=== PATIENT | male | born 1930 | race Caucasian/White ===

== ENCOUNTER → 2016-08-08 | Outpatient (CLI) | payer MEDICARE, OTHER | LOC: MW.CHPS 08:00 | PROVIDERS: ATTEND Physician Assistant | DX: C44.310 Basal cell carcinoma of skin of unspecified parts of face (principal) | CPT/HCPCS: 99203 ==

== ENCOUNTER 2016-08-21 09:41 | Day surgery (SDC) | payer MEDICARE, OTHER ==
[~2016-08-21 09:41] MED LIST: Bupivacaine 0.25%/EPINEPHrine 1:200,000 10 ML SDV INJECT ONE; Bupivacaine 0.25%/EPINEPHrine 1:200,000 10 ML SDV ONE; Lactated Ringers 1,000 ML IV SCH; Lidocaine 2% 5 ML SDV ONE; Propofol 200 MG/20 ML SDV ONE; Sodium Chloride 0.9% 20 ML ONE; traMADol 50 MG Tab PO PRN
[2016-08-21] MEDS ORDERED: ceFAZolin 2 GM in Premix Bag 1 BAG IV ONE (10:00)
--- NOTE | 2016-08-21 10:23 | PCM.PREANE ---
Preanesthetic Assessment - Anesthesia/Transfusion/Family Hx Anesthesia History: Prior Anesthesia Without Reaction Other Type of Anesthesia Reaction Comment: Dneis any known problem with anesthesia in the past Family History of Anesthesia Reaction: No Transfusion History: No Prior Transfusion(s) Intubation History: Unknown - Review of Systems General: No Symptoms Pulmonary: No Symptoms Cardiovascular: No Symptoms Gastrointestinal: No symptoms Neurological: No Symptoms Other: Reports: None - Physical Assessment Height: 1.68 m Weight: 80.286 kg ASA Class: 3 Mental Status: Alert & Oriented x3 Airway Class: Mallampati = 2 Dentition: Reports: Dentures (upper and lower) Thyro-Mental Finger Breadths: 2 Mouth Opening Finger Breadths: 2 ROM/Head Extension: Limited/Partial Lungs: Clear to auscultation, Normal respiratory effort Cardiovascular: Regular Rate, Regular Rhythm - Allergies Allergies/Adverse Reactions: Allergies Allergy/AdvReac Type Severity Reaction Status Date / Time No Known Allergies Allergy Verified 09/15/15 11:30 - Blood Blood Available: No - Anesthesia Plan Pre-Op Medication Ordered: None - Acknowledgements Anesthesia Type Planned: MAC Pt an Appropriate Candidate for the Planned Anesthesia: Yes Alternatives and Risks of Anesthesia Discussed w Pt/Guardian: Yes Pt/Guardian Understands and Agrees with Anesthesia Plan: Yes PreAnesthesia Questionnaire HEENT History: Reports: Other (see below) Other HEENT History: top and bottom denture Cardiovascular History: Reports: CAD, Hypertension, DC, Stents (multiple) Respiratory History: Reports: COPD Gastrointestinal History: Reports: GERD Musculoskeletal History: Reports: Fracture Other Musculoskeletal History: hx fx ankle Hematologic History: Reports: Other (see below) Other Hematologic History: unknown, states "they may have given me a transfusion with my heart bypass" - Past Surgical History Head Surgeries/Procedures: Reports: None Cardiovascular Surgical History: Reports: Coronary artery bypass, Coronary artery stent Other Cardiovascular Surgeries/Procedures: CABG x3 ,coronary stents x2 or 3 in 2003, coronary stent x7 in 2016 GI Surgical History: Reports: Colonoscopy Musculoskeletal Surgical History: Reports: ORIF (ankle fx) - SUBSTANCE USE Smoking Status *Q: Former Smoker Tobacco Use Within Last Twelve Months: No Second Hand Smoke Exposure: No Days Per Week of Alcohol Use: 0 Number of Drinks Per Day: 0 Total Drinks Per Week: 0 Recreational Drug Use History: No - HOME MEDS Home Medications: Home Meds Aspirin [Lite Coat Aspirin] 81 mg PO DAILY 09/23/13 [History] Lisinopril [Zestril] 20 mg PO DAILY 09/23/13 [History] Omeprazole 40 mg PO DAILY 09/23/13 [History] Clopidogrel Bisulfate [Plavix] 75 mg PO DAILY 08/16/16 [History] Furosemide 20 mg PO DAILY 08/16/16 [History] atorvaSTATin Calcium [Atorvastatin Calcium] 40 mg PO DAILY 08/16/16 [History] - CURRENT (IN HOUSE) MEDS Current Meds: Current Medications Lactated Ringer's (Ringers, Lactated) 1,000 mls @ 125 mls/hr IV ASDIRECTED WILLARD Cefazolin Sodium/Dextrose 2 gm (/ Premix) 50 mls @ 100 mls/hr IV ONETIME ONE Stop: 08/21/16 10:29 Tramadol HCl (Ultram) 50 mg PO Q4H PRN PRN Reason: Pain Discontinued Medications Bupivacaine HCl/Epinephrine Bitart (Marcaine 0.25%/Epinephrine 1:200,000) 10 ml INJECT ONETIME ONE Stop: 08/21/16 09:01 Bupivacaine HCl/Epinephrine Bitart (Marcaine 0.25%/Epinephrine 1:200,000) Confirm Administered Dose 20 ml .ROUTE .STK-MED ONE Stop: 08/21/16 07:46 Sodium Chloride (Normal Saline) Confirm Administered Dose 20 mls @ as directed .ROUTE .STK-MED ONE Stop: 08/21/16 07:19 Lidocaine (Xylocaine-Mpf 2%) Confirm Administered Dose 5 ml .ROUTE .STK-MED ONE Stop: 08/21/16 07:28 Propofol (Diprivan 20 Ml) Confirm Administered Dose 200 mg .ROUTE .STK-MED ONE Stop: 08/21/16 07:28 Sufentanil Citrate (Sufenta) Confirm Administered Dose 50 mcg .ROUTE .STK-MED ONE Stop: 08/21/16 07:17
[2016-08-21] MEDS ORDERED: ceFAZolin 1 GM Vial ONE (11:51)
[2016-08-21] MEDS ORDERED: Ondansetron 4 MG/2 ML SDV ONE (12:13)
[2016-08-21 13:28] VITALS: BP 139/66
--- NOTE | 2016-08-21 16:00 | PCM.OPNOTE ---
- General Post-Op/Procedure Note Date of Surgery/Procedure: 08/21/16 Operative Procedure(s): excision of right cheek basal cell carcinoma 1.5x4cm with frozen sections with intermediate 4cm closure. Pre Op Diagnosis: basal cell right cheek Post-Op Diagnosis: Same Anesthesia Technique: Local, MAC Primary Surgeon: Tennille Mitchell Glass Blower Helper: Marissa Resendiz Complications: None Condition: Good Free Text/Narrative:: Intake & Output 08/20/16 08/21/16 08/21/16 23:59 07:59 15:59 Intake Total 800 Balance 800
--- NOTE | 2016-08-22 23:14 | OR ---
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 PROCEDURE: Excision of right cheek basal cell carcinoma 1.5 x 4 cm with frozen section, then intermediate 4 cm closure. WALLPAPERER HELPER: MAURICE Rios. ANESTHESIA: Local MAC. INDICATIONS: Mr. Hartman is an 85-year-old gentleman with basal cell carcinoma of the cheek. Risks and benefits of excision with frozen sections then closure were discussed with him and he was in agreement to proceed. He is on Plavix and has continued to take this. Thus, it is recommended to this in the operating room. PROCEDURE IN DETAIL: After informed consent was obtained and placed on the chart, the patient was brought to the operating theater and laid in the supine position. After adequate local MAC anesthetic was obtained, the area was prepped and draped in normal fashion using Betadine cleansing solution and the area was anesthetized after time-out to confirm side and site. After adequate anesthesia, the area was excised in elliptical fashion marked at 12 o'clock margin and sent for pathology. Once frozen sections came back as negative with diagnosis of lung basal cell, the wound was closed in an intermediate fashion using deep 4-0 Monocryl stitches and a running 4-0 subcuticular for the skin. Minimal bleeding and thus, a Steri-Strip was used for dressing. The patient tolerated the procedure well and all counts of needles were correct at the end of the case. FOLLOWUP INSTRUCTIONS: The patient will see us in clinic in 7 to 10 days for re-evaluation sooner if any problems, questions, or concerns. [id number] medications for pain control. HEGGTOLMAN / MARGARET /[id number]
== END 2016-08-21 13:25 | disposition home or self-care (01) ==
LOC: MW.SDS 09:41
PROVIDERS: ATTEND Plastic Surgery
PROC: 0JQ10ZZ Repair Face Subcutaneous Tissue and Fascia, Open Approach (ICD-10-PCS; principal; 2016-08-21)
PROC: 0JB10ZZ Excision of Face Subcutaneous Tissue and Fascia, Open Approach (ICD-10-PCS; 2016-08-21)
DX: C44.319 Basal cell carcinoma of skin of other parts of face (principal); I25.10 Atherosclerotic heart disease of native coronary artery without angina pectoris; I10 Essential (primary) hypertension; E78.5 Hyperlipidemia, unspecified; K21.9 Gastro-esophageal reflux disease without esophagitis; I25.2 Old myocardial infarction; J44.9 Chronic obstructive pulmonary disease, unspecified; Z87.891 Personal history of nicotine dependence; Z79.02 Long term (current) use of antithrombotics/antiplatelets; Z79.82 Long term (current) use of aspirin; Z79.899 Other long term (current) drug therapy; Z95.1 Presence of aortocoronary bypass graft; Z95.5 Presence of coronary angioplasty implant and graft; Z98.890 Other specified postprocedural states
CPT/HCPCS: 11646; 12052; 88305; 88331; J0690; J2405; 00300; J2704

== ENCOUNTER → 2016-08-27 | Outpatient (CLI) | payer OTHER, MEDICARE | LOC: MW.CHPS 08:00 | PROVIDERS: ATTEND Physician Assistant | DX: Z48.817 Encounter for surgical aftercare following surgery on the skin and subcutaneous tissue (principal) ==

== ENCOUNTER 2017-09-16 11:49 | Emergency (ER) | payer MEDICARE, OTHER ==
--- NOTE | 2017-09-16 13:25 | EDM.PDOC ---
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 The patient says that he occasionally coughs and he'll get some phlegm and he just had a little cough this morning and when he did that he noticed some clear phlegm with right red blood. The patient wears dentures both on the upper and lower and has no complaints of oral pain chest pain or shortness of breath. He' s had no fever chills runny nose and no history of pulmonary problems but he was a smoker many years ago. He has no chest pain and no bleeding elsewhere from his body i.e. in his stools urine. Patient says that he did not cough very hard and he is not sure if the coughing has triggered the bleeding he says he was in his usual state of good health and ate and drink normally prior to these events and currently is asymptomatic and only concerned about the bleeding from his mouth and coughing. Review of systems: As per history of present illness and below otherwise all systems reviewed and negative. Past medical history: As per history of present illness and as reviewed below otherwise noncontributory. Surgical history: As per history of present illness and as reviewed below otherwise noncontributory. Social history: No reported history of drug or alcohol abuse. Family history: As per history of present illness and as reviewed below otherwise noncontributory. Physical exam: HEENT: Atraumatic, normocephalic, pupils reactive, negative for conjunctival pallor or scleral icterus, mucous membranes moist, throat clear, neck supple, nontender, trachea midline. There was clotted blood underneath the patient's lower denture when he removed them and after rinsing his mouth numerous times the bleeding would not mckenna. I identified a small area in the front of his lower inner gumline where his dentures sit that has an area of irritation and is losing. He has no posterior oropharyngeal bleeding or nasal bleeding. Lungs: Clear to auscultation, breath sounds equal bilaterally, chest nontender. Heart: S1S2, regular rate and rhythm no overt murmurs Abdomen: Soft, nondistended, nontender. Negative for masses or hepatosplenomegaly. NABS Pelvis: Deferred Genitourinary: Deferred. Rectal: Deferred. Extremities: Atraumatic, negative for cords or calf pain. Neurovascular unremarkable. Neuro: Awake, alert, oriented. Cranial nerves II through XII unremarkable. Cerebellum unremarkable. Motor and sensory unremarkable throughout. Exam nonfocal. Diagnostics: He did offer the patient a workup after the source of the bleeding was identified and he would like to just treat the problem. He does not want a chest x-ray or labs performed Therapeutics: The patient and I held pressure on the area of losing along his inner lower gumline and hemostasis was achieved. I advised the patient to eat a soft diet and that if the bleeding returns to hold pressure using the gauze. I also advised him to not wear his dentures for the next 24 hours Impression: Intraoral bleeding likely secondary to irritation by his dentures Definitive disposition and diagnosis as appropriate pending reevaluation and review of above. - Related Data Allergies Allergy/AdvReac Type Severity Reaction Status Date / Time No Known Allergies Allergy Verified 09/16/17 13:08 Home Meds: Home Meds Aspirin [Lite Coat Aspirin] 81 mg PO DAILY 09/23/13 [History] Lisinopril [Zestril] 20 mg PO DAILY 09/23/13 [History] Omeprazole 40 mg PO DAILY 09/23/13 [History] Clopidogrel Bisulfate [Plavix] 75 mg PO DAILY 08/16/16 [History] Furosemide 20 mg PO DAILY 08/16/16 [History] atorvaSTATin Calcium [Atorvastatin Calcium] 40 mg PO DAILY 08/16/16 [History] Past Medical History HEENT History: Reports: Other (See Below) Other HEENT History: top and bottom denture Cardiovascular History: Reports: High Cholesterol, Hypertension Respiratory History: Reports: COPD Gastrointestinal History: Reports: GERD Genitourinary History: Reports: None Musculoskeletal History: Reports: Fracture Other Musculoskeletal History: hx fx ankle Neurological History: Reports: None Psychiatric History: Reports: None Endocrine/Metabolic History: Reports: None Hematologic History: Reports: Other (See Below) Other Hematologic History: unknown, states "they may have given me a transfusion with my heart bypass" Immunologic History: Reports: None Oncologic (Cancer) History: Reports: None Dermatologic History: Reports: None - Past Surgical History Head Surgeries/Procedures: Reports: None HEENT Surgical History: Reports: None Cardiovascular Surgical History: Reports: Coronary Artery Bypass, Coronary Artery Stent Respiratory Surgical History: Reports: None GI Surgical History: Reports: Colonoscopy Male Surgical History: Reports: None Endocrine Surgical History: Reports: None Neurological Surgical History: Reports: None Musculoskeletal Surgical History: Reports: ORIF Oncologic Surgical History: Reports: None Dermatological Surgical History: Reports: None Social & Family History - Family History Family Medical History: Noncontributory HEENT: Reports: Other (See Below) Other HEENT Family History: Mother-Throat Cancer Cardiac: Reports: Hypertension Other Cardiac Family History: Brother Oncologic: Reports: Other (See Below) Other Oncologic Family History: Mother-Throat Cancer - Tobacco Use Smoking Status *Q: Never Smoker Second Hand Smoke Exposure: No - Caffeine Use Caffeine Use: Reports: Coffee - Recreational Drug Use Recreational Drug Use: No ED ROS GENERAL - Review of Systems Review Of Systems: ROS reveals no pertinent complaints other than HPI. ED EXAM, GENERAL - Physical Exam Exam: See Below (See dictation) Course - Vital Signs Last Recorded V/S: Last Vital Signs Temp 36.1 C 09/16/17 13:08 Pulse 74 09/16/17 13:08 Resp 16 09/16/17 13:08 BP 120/71 09/16/17 13:08 Pulse Ox 98 09/16/17 13:08 Departure - Departure Time of Disposition: 13:44 Disposition: Home, Self-Care 01 Condition: Good Clinical Impression: Oral bleeding - Discharge Information Referrals: Gaurav Westfall MD [Primary Care Provider] - Forms: ED Department Discharge Additional Instructions: The following information is given to patients seen in the emergency department who are being discharged to home. This information is to outline your options for follow-up care. We provide all patients seen in our emergency department with a follow-up referral. The need for follow-up, as well as the timing and circumstances, are variable depending upon the specifics of your emergency department visit. If you don't have a primary care physician on staff, we will provide you with a referral. We always advise you to contact your personal physician following an emergency department visit to inform them of the circumstance of the visit and for follow-up with them and/or the need for any referrals to a consulting specialist. The emergency department will also refer you to a specialist when appropriate. This referral assures that you have the opportunity for followup care with a specialist. All of these measure are taken in an effort to provide you with optimal care, which includes your followup. Under all circumstances we always encourage you to contact your private physician who remains a resource for coordinating your care. When calling for followup care, please make the office aware that this follow-up is from your recent emergency room visit. If for any reason you are refused follow-up, please contact the [facility] emergency department at and ask to speak to the emergency department charge nurse. [address] [place] [address] [facility] Primary care- Internal Medicine and Family [address] [id number] Please do not wear your lower dentures for the next 24 hours and eat a soft diet avoiding any spicy or supersoft seafoods. If bleeding returns use the gauze you have been given and hold pressure for 10 minutes. Please call and follow-up with your provider in the clinic and return to ER as needed and as discussed
[2017-09-16 14:02] VITALS: BP 119/57
== END 2017-09-16 13:56 | disposition home or self-care (01) ==
LOC: MW.ED 11:49
DX: K06.8 Other specified disorders of gingiva and edentulous alveolar ridge (principal); E78.00 Pure hypercholesterolemia, unspecified; I10 Essential (primary) hypertension; Z79.82 Long term (current) use of aspirin; Z79.899 Other long term (current) drug therapy
CPT/HCPCS: 99282